=== PATIENT | male | born 1995 | race Caucasian/White ===

== ENCOUNTER 2024-01-08 19:53 | Emergency (ER) | payer OTHER, SELFPAY ==
--- NOTE | ~2024-01-08 | CT_ITS ---
EXAMINATION: CT ABDOMEN AND PELVIS WITH CONTRAST CLINICAL INFORMATION: Abdominal pain. COMPARISON: None available. TECHNIQUE: Multidetector volumetric images were obtained from the superior aspect of the liver through the pubic symphysis following administration 85 mL of Omnipaque 350 intravenous contrast. Sagittal and coronal reformatted images were obtained on the technologist's workstation. Oral contrast: No This CT examination was performed using dose optimization techniques as appropriate, variously including the following: *Automated exposure control *Adjustment of mA and/or kV according to patient size (this includes techniques or standardized protocols for targeted exams where dose is matched to indication/reason for exam; i.e. extremities or head) *Use of iterative reconstruction technique DLP: 722 mGy-cm FINDINGS: LUNG BASES: There is scarring or minimal subsegmental atelectasis at the lung bases. LIVER, GALLBLADDER, AND BILIARY TREE: The liver is normal in size, shape, and attenuation. No focal hepatic lesion or biliary ductal dilatation is present. The gallbladder is unremarkable with no evidence of radiopaque gallstones, gallbladder wall thickening, or obvious pericholecystic inflammatory changes. PANCREAS: Unremarkable. SPLEEN: Unremarkable. ADRENAL GLANDS: Unremarkable. KIDNEYS AND URETERS: The kidneys are normal in size, shape, and attenuation. Scattered left renal calculi measuring up to 5 mm lower pole left kidney. There is mild left hydronephrosis and hydroureter extending into the pelvis to the level of a 2 mm distal left ureteric calculus. BLADDER: Unremarkable. GASTROINTESTINAL TRACT: The small and large bowel are unremarkable. The appendix is unremarkable. ABDOMINAL WALL: There is a small umbilical hernia containing fat. LYMPH NODES: Normal. VASCULAR: Unremarkable. PELVIC VISCERA: Unremarkable. OSSEOUS STRUCTURES: Unremarkable. CT/CT abdomen pelvis w IV con IMPRESSION: 1. Mild left hydronephrosis and hydroureter extending into the pelvis to the level of a 2 mm distal left ureteric calculus. 2. Scattered left renal calculi measuring up to 5 mm lower pole left kidney. Fleischner guidelines were followed.
--- NOTE | 2024-01-08 20:25 | ED.ABDPAIN ---
HPI - Abdominal Pain General Chief Complaint: Abdominal Pain Stated Complaint: extremes stomach pain Time Seen by Provider: 01/08/24 23:40 Source: patient Mode of arrival: ambulatory History of Present Illness HPI narrative: 28-year-old male reports that throughout the day he has had some difficulty with urination and then reports that approximately 6 to 7p while having bowel movement that he experienced significant abdominal discomfort denies any fever or chills and for some nausea. Related Data Previous Rx's Medication Instructions Recorded ketorolac 10 mg tablet 10 mg PO Q6H PRN pain 5 days #20 01/09/24 tabs prednisone 20 mg tablet 20 mg PO DAILY #4 tabs 01/09/24 tamsulosin 0.4 mg capsule (Flomax) 0.4 mg PO BEDTIME #4 caps 01/09/24 Allergies Allergy/AdvReac Type Severity Reaction Status Date / Time No Known Allergies Allergy Verified 01/08/24 20:26 Review of Systems Review of Systems Pertinent positives and negatives as stated in HPI PMFSH Past Medical History Source: nursing notes reviewed Social History Social History Advance Directives: No Advance Directives Information Provided: No Physical Exam ED Vital Signs: Vital Signs - 24 hr 01/08/24 20:27 01/08/24 22:59 01/08/24 23:35 Temperature 97.6 F 97.8 F 98.3 F Pulse Rate 96 103 H 92 Respiratory Rate 19 18 17 Blood Pressure 152/88 H 122/72 111/54 L Pulse Oximetry 98 98 96 Oxygen Delivery Method Room Air Room Air Room Air BMI result Body Mass Index 35.7 VITAL SIGNS: Reviewed. GENERAL: Well developed, well nourished, in no acute distress. HEAD: Normocephalic/atraumatic EYES: PERRLA, EOMI EARS: Ext canals without abnormality NOSE: Nares patent bilateral OROPHARYNX: no oral lesions noted, posterior pharynx clear NECK: Supple, no adenopathy LUNGS: Normal breath sounds. No adventitious sounds or accessory muscle use. SpO2<98> CARDIOVASCULAR: Regular rate and rhythm without noted murmurs ABDOMEN: Soft, non-tender, non-distended with bowel sounds. MUSCULOSKELETAL: No tenderness, deformities, or effusions noted on gross inspection. EXTREMITIES: No cyanosis, clubbing or edema. SKIN: Inspection of the skin reveals no rashes NEUROLOGIC: Alert and oriented x 4. Strength and sensation to light touch were grossly intact x 4. Course Course Course Narrative: This is an RME: Additional HPI, ROS, PE not included below will be deferred to primary provider. Patient is a 28-year-old male presents emergency department for evaluation of severe ABD pain, diffuse across lower ABD radiating to back, onset while having a BM, successful movement without hematochezia or melena. Has associated nausea but no vomiting. He does report that earlier today he was experiencing urinary urgency frequency and urgency throughout the day with penile pain without hematuria/dysuria. States that once the severe lower abdominal pain started he no longer felt penile pain. Denies any testicular pain swelling. Denies any recent trauma. Exam: No rigidity. No guarding. No abdominal tenderness upon palpation/rebound tenderness. No CVA tenderness. Plan: Labs, urinalysis Medical Decision Making Medical Decision Making [facility] Narrative: 28-year-old male with history and clinical presentation of a benign abdominal exam, DDX: Renal colic, appendicitis, constipation, UTI I reviewed all investigations and hematologic indices appear to be most consistent with a non infectious leukocytosis as patient is afebrile, abdominal exam is benign, urinalysis does not demonstrate any UTI and patient has no other constitutional symptoms to suggest pneumonia. Otherwise, hematologic indices negative for anemia or thrombocytopenia. Chemistry indices negative for TAM/electrolyte derangements. There is an isolated bump in total bilirubin of 1.3. May be attributable to patient's feelings of nausea and pain. Urinalysis demonstrates hematuria which I suspect is most consistent with likely renal colic. I suspect patient has passed a kidney stone. CT scan significant for slight left hydro nephrosis and evidence of 2 mm stone distal. Patient is pain-free and will be discharged on a course of medications and given follow-up for Urology. Differential Diagnosis Differential Diagnoses: The differential diagnosis associated with the presentation includes Please see the discussion above Admission/Observation Consideration of admission/observation: Escalation of care including admission/observation considered Please see the discussion above Lab Data [facility] Lab Attestation statement: I reviewed the patient's lab results. Please see the discussion above 01/08/24 21:52 01/08/24 21:51 Labs: Lab Results 01/08/24 01/08/24 Range/Units 21:51 21:52 WBC 18.5 H (4.8-10.8) X10*3/uL RBC 5.52 (4.60-5.80) X10*6/uL Hgb 16.0 (14.0-18.0) g/dl Hct 47.3 (42.0-52.0) % MCV 85.7 (80.0-98.0) fL MCH 29.0 (27.0-33.0) pg MCHC 33.8 (31.0-36.0) g/dl RDW 11.9 (11.0-16.0) % Plt Count 387 (160-400) X10*3/uL MPV 9.1 L (9.4-12.4) fL Immature Gran % (Auto) 0.4 (0.0-0.4) % Neut % (Auto) 87.5 H (45-73) % Lymph % (Auto) 7.8 L (20-40) % [place] % (Auto) 3.9 (2-11) % Eos % (Auto) 0.1 (0-4) % Baso % (Auto) 0.3 (0-2) % Lymph # (Auto) 1.5 (1.2-4.9) X10*3/uL [place] # (Auto) 0.7 (0.1-1.2) X10*3/uL Eos # (Auto) 0.0 (0.0-0.4) X10*3/uL Baso # (Auto) 0.1 (0.0-0.2) X10*3/uL Abs Immat Gran (auto) 0.08 H (0.00-0.03) X10*3/uL Absolute Neuts (auto) 16.2 H (2.0-8.3) x10*3/uL Absolute Nucleated RBC 0.000 (0.0-0.012) X10*3/uL Nucleated RBC % (auto) 0.0 (0.0-0.2) /100WBC Sodium 140 (135-145) mmol/L Potassium 3.5 (3.3-5.1) mmol/L Chloride 107 (96-108) mmol/L Carbon Dioxide 22 (22-29) mmol/L Anion Gap 15 (12-20) BUN 12 (9-16) mg/dL Creatinine 0.96 (0.5-1.4) mg/dL Estim Creat Clear Calc 134.3 Estimated GFR > 60 Random Glucose 123 H (60-115) mg/dL Calcium 9.9 (8.4-10.2) mg/dL Total Bilirubin 1.3 H (0.0-1.0) mg/dL AST 21 (5-37) U/L ALT 34 (0-40) U/L Alkaline Phosphatase 66 (39-117) U/L Total Protein 7.8 (6.5-8.0) g/dL Albumin 4.8 (3.5-5.0) g/dL Lipase 30 (8-78) U/L Urine Color Yellow Urine Appearance Clear Urine pH 5.0 (5.0-9.0) Ur Specific Bells >= 1.030 H (1.005-1.025) Urine Protein Trace (Neg-Trace) mg/dL Urine Glucose (UA) Negative (Negative) mg/dL Urine Ketones Trace (Negative) mg/dL Urine Blood Large (3+) H (Negative) Urine Nitrite Negative (Negative) Ur Leukocyte Esterase Negative (Negative) Urine RBC >20 H (0-2) /HPF Urine WBC 0-5 (0-5) /HPF Ur Squamous Epith Cells 0-2 (0-2) /HPF Urine Bacteria None Seen (None Seen) Hyaline Casts 0-2 (0-2) /LPF Radiology Impression Discussion of test interpretation with radiology: I have reviewed the radiologist's reading. Radiologist Impression: Please see the discussion above Medications Administered Discontinued Medications Generic Name Dose Route Start Last Admin Trade Name Freq PRN Reason Stop Dose Admin Iohexol 85 ml 01/09/24 00:10 01/09/24 00:10 Iohexol 350 Mg/Ml 100 Ml Infus..Btl IV 01/09/24 00:11 85 ml ONCE ONE Administration Discharge Plan Discharge Clinical Impression: Renal colic, Hydronephrosis, Ureterolithiasis Patient Disposition: Home, Self-Care Instructions: Renal Colic (ED), Low Oxalate Diet (ED), Hydronephrosis (ED), Ureteral Stones (ED) Additional Instructions: 1. Continue to drink plenty of water, you will be discharged with medications to help you pass this stone. 2. Please follow-up with the urologist by calling the office on Kristopher morning. Return to the ER for any worsening symptoms. Prescriptions: New tamsulosin [Flomax] 0.4 mg capsule 0.4 mg PO BEDTIME Qty: 4 0RF prednisone 20 mg tablet 20 mg PO DAILY Qty: 4 0RF ketorolac 10 mg tablet 10 mg PO Q6H PRN (Reason: pain) 5 Days Qty: 20 0RF Rx Instructions: Patient received Toradol in the emergency room. Referrals: Alexis Coulter MD [Physician] -
[2024-01-08 20:27] VITALS: BP 152/88; PULSE 96; RESP 19; TEMP 36.4; O2SAT 98; BMI 35.7
--- NOTE | 2024-01-08 21:55 | MHC.EDTECH ---
PATIENT BLOOD DRAWN AND URINE SAMPLE COLLECTED AND SENT TO LAB .
[2024-01-08 21:56] LABS: MANUAL DIFF FLAG NO
[2024-01-08 21:58] LABS: Basophils Absolute Auto 0.1 X10*3/uL (0.0-0.2); Basophils Percent Auto 0.3 % (0-2); Eosinophils Percent Auto 0.1 % (0-4); Hematocrit 47.3 % (42.0-52.0); Imm Gran Abs Auto 0.08 X10*3/uL (0.00-0.03); Imm Gran Pct Auto 0.4 % (0.0-0.4); Lymphocytes Absolute Auto 1.5 X10*3/uL (1.2-4.9); Lymphocytes Percent Auto 7.8 % (20-40); Mean Corpuscular HGB Conc 33.8 g/dl (31.0-36.0); Mean Corpuscular Volume 85.7 fL (80.0-98.0); Mean Platelet Volume 9.1 fL (9.4-12.4); Monocytes Absolute Auto 0.7 X10*3/uL (0.1-1.2); Monocytes Percent Auto 3.9 % (2-11); Neutrophils Absolute Auto 16.2 x10*3/uL (2.0-8.3); Neutrophils Percent Auto 87.5 % (45-73); Platelet Count 387 X10*3/uL (160-400); Red Blood Count 5.52 X10*6/uL (4.60-5.80); Red Cell Distribution Width 11.9 % (11.0-16.0); White Blood Count 18.5 X10*3/uL (4.8-10.8)
[2024-01-08 22:10] LABS: Appearance Urine Clear; Color Urine Yellow; Glucose Urine UA Negative (Negative); Leukocyte Esterase Urine Negative (Negative); Nitrite Urine Negative (Negative); Specific Gravity - Urine >= 1.030 (1.005-1.025); UMIC TRIGGER UACC YES; Urine Blood Large (3+) (Negative); Urine Ketones Trace mg/dL (Negative); Urine Protein Trace mg/dL (Neg-Trace)
[2024-01-08 22:16] LABS: Alanine Aminotransferase 34 U/L (0-40); Albumin Level 4.8 g/dL (3.5-5.0); Alkaline Phosphatase 66 U/L (39-117); Anion Gap 15 (12-20); Aspartate Amino Transferase 21 U/L (5-37); Bilirubin Total 1.3 mg/dL (0.0-1.0); Blood Urea Nitrogen 12 mg/dL (9-16); Calcium 9.9 mg/dL (8.4-10.2); Carbon Dioxide 22 mmol/L (22-29); Chloride 107 mmol/L (96-108); Creatinine Clr Calc Pharmacy 134.3; Estimated Glomerular Filt Rate > 60; Glucose Random 123 mg/dL (60-115); Lipase 30 U/L (8-78); Potassium 3.5 mmol/L (3.3-5.1); Sodium 140 mmol/L (135-145); Total Protein 7.8 g/dL (6.5-8.0)
[2024-01-08 22:18] LABS: Bacteria Urine None Seen (None Seen); Hyaline Casts Urine 0-2 /LPF (0-2); RBC Urine >20 /HPF (0-2); Squamous Epithelial Cell Urine 0-2 /HPF (0-2); WBC Urine 0-5 /HPF (0-5)
[2024-01-08 22:59] VITALS: BP 122/72; PULSE 103; RESP 18; TEMP 36.6; O2SAT 98
--- NOTE | 2024-01-08 23:13 | PC.NURSE ---
Reports abdominal pain that is improving but radiates to back. IV placed #20 L-AC
[2024-01-08 23:35] VITALS: BP 111/54; PULSE 92; RESP 17; TEMP 36.8; O2SAT 96
[2024-01-09] MEDS: iohexoL 350 MG/ML 100 ML INFUS..BTL 85 ML IV (00:10)
[2024-01-09 02:00] VITALS: BP 129/77; PULSE 115; RESP 18; TEMP 36.3; O2SAT 97
[2024-01-09] MEDS: Tamsulosin HCL 0.4 MG CAPSULE PO (02:35)
== END 2024-01-09 02:30 | disposition home or self-care (01) ==
PROVIDERS: Nurse Practitioner Family; Emergency Provider Student in an Organized Health Care Education/Training Program
DX: N13.2 Hydronephrosis with renal and ureteral calculous obstruction (principal)
CPT/HCPCS: 36415; 74177; 80053; 81001; 81003; 83690; 85025; 99284; Q9967

== ENCOUNTER 2024-02-25 12:39 | Outpatient (AMB) | payer OTHER, SELFPAY ==
--- NOTE | 2024-02-25 12:51 | MHC.OFFVIS ---
Intake Intake Visit Reasons: ureteral stone/nephrolithiasis Intake Note: NEW Patient presents today to established treatment for urethral stone Meds- Allergies to Antibiotic- No Known Allergies Blood Thinner- None Patient Symptoms: Patient was in the emergency department about a month ago due to chronic pain. He was told he had a kidney stone. Issue was resolved with medications prescribed in the ER. Patient stated he does not have any pain, or visible blood in the urine. Web Press Roll Tender Required: No Accompanied by: Self / Same As Patient Allergies No Known Allergies Allergy (Verified 02/25/24 13:25) Medication List - Last Reconciled 02/25/24 by JURGEN Rogers- HPI HPI Comments History of Present Illness Details Eugene is a very pleasant 28-year-old male patient. He presents to the office today as a new patient for nephrolithiasis. In discussion with the patient today reports to be doing and feeling well. He reports having seeked emergency room care services approximately 6 weeks ago for left-sided flank pain he had been experiencing at which time a CT of the abdomen was ordered for further assessment evaluation. These results were reviewed with the patient today. Scattered left renal calculi measuring up to 5 mm in the lower pole of the left kidney. There is mild left hydronephrosis and hydroureter extending into the pelvis to the level of a 2 mm distal left uterine calculus. The bladder is unremarkable. He reports having completed Flomax and prednisone as prescribed by ER physician. He reports pain subsided approximately 3 days after his ER visit. He currently denies any bothersome urinary issues or concerns. Denies any previous history of nephrolithiasis and or surgical intervention for nephrolithiasis. In office urinalysis results reviewed with the patient today 3+ microscopic hematuria. Patient denies any previous smoking history and or known workplace chemical exposure. Discussed likelihood of microscopic hematuria in the setting of nephrolithiasis. He otherwise offers no other issues or concerns at this time. [facility] Medical History No pertinent past medical history Surgical History No pertinent past surgical history Social History Alcohol intake: never Patient Tobacco Use Status: Never used Tobacco Review of Systems Const All systems reviewed & are unremarkable except as noted in HPI and below Physical Exam Const General: cooperative, healthy appearing, comfortable, no acute distress, well developed, alert and awake Orientation/consciousness: patient oriented x3 Limitations: no limitations HEENT Head: Yes normal to inspection, Yes normocephalic and Yes atraumatic Ears: hearing grossly normal bilaterally Eyes General: appearance normal, both eyes and all related structures Neck Neck: Yes normal visual inspection and Yes trachea midline Chest Chest palpation & inspection: normal inspection of the chest Resp Effort & Inspection: normal respiratory effort and able to speak in complete sentences Cardio Rate: regular rate GI Inspection: Yes normal to inspection General: Yes no CVA tenderness Back/Spine/Pelvis Back: no CVA tenderness Skin General skin exam: no rashes or lesions noted Neuro General: patient oriented x3 Extrem General: Yes normal to inspection Psych Appearance: grossly normal and well kempt Mental Status: mental status grossly normal Speech and movement: Normal speech and movement present and Clear speech present Affect: normal affect Attitude: cooperative Thought process: Normal thought process present Thought content: Normal thought content present Insight: Good insight present (Psych) Judgement: Good judgement present (Psych) Results AMB Urinalysis, Automated UA Leukoctes 0 James/uL Last Edit by Yessica Villalobos [facility] on 02/25/24 13:05 UA Nitrite Negative Last Edit by Yessica Villalobos [facility] on 02/25/24 13:05 UA Urobilinogen 0.2 mg/dL Last Edit by Yessica Villalobos [facility] on 02/25/24 13:05 UA Protein 0 mg/dL Last Edit by Yessica Villalobos [facility] on 02/25/24 13:05 UA pH 6.0 Last Edit by Yessica Villalobos [facility] on 02/25/24 13:05 UA Blood 200 Ming/uL Last Edit by Yessica Villalobos [facility] on 02/25/24 13:05 UA Specific [place] 1.020 Last Edit by Yessica Villalobos [facility] on 02/25/24 13:05 UA Ketone Negative Last Edit by Yessica Villalobos [facility] on 02/25/24 13:05 UA Bilirubin 0 mg/dL Last Edit by eYssica Villalobos [facility] on 02/25/24 13:05 UA Glucose 0 mg/dL Last Edit by Yessica Villalobos [facility] on 02/25/24 13:05 Results Reviewed Results Reviewed: Laboratory Last Values Urine pH (Auto) 6.0 02/25/24 12:55 Specific [place] (Auto) 1.020 02/25/24 12:55 Urine Protein (Auto) 0 mg/dL 02/25/24 12:55 Glucose (UA)(Auto) 0 mg/dL 02/25/24 12:55 Urine Ketones (Auto) Negative 02/25/24 12:55 Urine Blood (Auto) 200 Ming/uL 02/25/24 12:55 Urine Nitrite (Auto) Negative 02/25/24 12:55 Urine Bilirubin (Auto) 0 mg/dL 02/25/24 12:55 Urine Urobilinogen (Auto) 0.2 mg/dL 02/25/24 12:55 Leukocyte Esterase (Auto) 0 James/uL 02/25/24 12:55 Date of Service: 01/08/24 EXAMINATION: CT ABDOMEN AND PELVIS WITH CONTRAST FINDINGS: LUNG BASES: There is scarring or minimal subsegmental atelectasis at the lung bases. LIVER, GALLBLADDER, AND BILIARY TREE: The liver is normal in size, shape, and attenuation. No focal hepatic lesion or biliary ductal dilatation is present. The gallbladder is unremarkable with no evidence of radiopaque gallstones, gallbladder wall thickening, or obvious pericholecystic inflammatory changes. PANCREAS: Unremarkable. SPLEEN: Unremarkable. ADRENAL GLANDS: Unremarkable. KIDNEYS AND URETERS: The kidneys are normal in size, shape, and attenuation. Scattered left renal calculi measuring up to 5 mm lower pole left kidney. There is mild left hydronephrosis and hydroureter extending into the pelvis to the level of a 2 mm distal left ureteric calculus. BLADDER: Unremarkable. GASTROINTESTINAL TRACT: The small and large bowel are unremarkable. The appendix is unremarkable. ABDOMINAL WALL: There is a small umbilical hernia containing fat. LYMPH NODES: Normal. VASCULAR: Unremarkable. PELVIC VISCERA: Unremarkable. OSSEOUS STRUCTURES: Unremarkable. IMPRESSION: 1. Mild left hydronephrosis and hydroureter extending into the pelvis to the level of a 2 mm distal left ureteric calculus. 2. Scattered left renal calculi measuring up to 5 mm lower pole left kidney. Assessment & Plan Assessment & Plan (1) Nephrolithiasis: Code(s): N20.0 - Calculus of kidney Plan In office urinalysis results reviewed with the patient today; as noted above. Recent CT results reviewed with the patient today; as noted above. Patient denies any bothersome urinary issues or concerns. Discussed at length potential causes of nephrolithiasis. Discussed obtaining renal ultrasound to ensure resolution of hydronephrosis. Discussed, educated, and stressed the importance of drinking plenty of water daily. Discussed further metabolic workup with 24 hour urine collection and labs. Discussed adding 1 oz of lemon juice to water daily. He is happy with his current voiding parameters. Follow-up in 1-2 months with imaging to be completed prior; or sooner with any issues, concerns, and or questions. Orders: Orders AMB Urinalysis Automated Today R33.9 - Retention of urine, unspecified US renal BI Today N20.0 - Calculus of kidney Patient Instructions: The patient had an opportunity to ask questions regarding the treatment plan. All questions were answered. Physical exam, labs, and imaging were discussed and reviewed in detail. As well as risks, benefits, and discussion of treatment choices. No major barriers to understanding were identified. The patient expressed understanding and agreement with the above treatment plan. The patient was made aware they should contact our office by phone for worsening of their current condition, the appearance of new symptoms, or with any questions or concerns. Compliance is encouraged with any medications and follow up testing that is ordered. It is a privilege to be allowed the opportunity to participate in? your urological care.? Again, if you have any questions or concerns If you have any questions or concerns please do not hesitate to contact me. The office is [phone]. This note is constructed using voice recognition software. While every effort has been made to ensure accuracy lecturer in computer science errors may have been included. Yours sincerely, RITCHIE Rogers Coding Level of Care Code New Pt Level 4 (14603) Diagnoses Nephrolithiasis N20.0
== END 2024-02-25 13:35 | disposition home or self-care (01) ==
PROVIDERS: Visit Provider Nurse Practitioner Family
DX: N20.0 Calculus of kidney (principal); R33.9 Retention of urine, unspecified
CPT/HCPCS: 99204

== ENCOUNTER → 2024-02-25 12:39 | Outpatient (BNVA) | payer OTHER, SELFPAY | PROVIDERS: Visit Provider Nurse Practitioner Family | DX: N20.0 Calculus of kidney (principal); R33.9 Retention of urine, unspecified | CPT/HCPCS: 81003 ==

== ENCOUNTER 2024-04-18 15:14 | Outpatient (REF) | payer OTHER, SELFPAY ==
--- NOTE | ~2024-04-18 | US_ITS ---
EXAMINATION: US RETROPERITONEAL LIMITED (RENAL ONLY) CLINICAL INFORMATION: Calculus of kidney. COMPARISON: CT abdomen and pelvis 01/08/2024. TECHNIQUE: Real-time imaging of the kidneys. Limited visualization due to bowel gas. FINDINGS: RIGHT KIDNEY: 12.1 x 4.4 x 6.2 cm (SAG x AP x TRV). No hydronephrosis. No renal calculi. Renal cortical thickness is normal. Limited visualization. LEFT KIDNEY: 12.2 x 4.9 x 6.1 cm (SAG x AP x TRV). No hydronephrosis. No renal calculi. Renal cortical thickness is normal. Limited visualization. ADDITIONAL FINDINGS: Incidental note on limited views of the right hepatic lobe of increased hepatic parenchymal heterogeneity and echogenicity which could be associated with hepatocellular disease/hepatic steatosis and substantially limits visualization. Correlation with liver function tests and clinical exam recommended to determine further management. US/US renal BI IMPRESSION: 1. No hydronephrosis. No renal calculi. Limited visualization. 2. Incidental note on limited views of the right hepatic lobe of increased hepatic parenchymal heterogeneity and echogenicity which could be associated with hepatocellular disease/hepatic steatosis and substantially limits visualization. Correlation with liver function tests and clinical exam recommended to determine further management.
== END 2024-04-18 15:15 | disposition home or self-care (01) ==
LOC: HO.HMGCX 15:14
PROVIDERS: Visit Provider Nurse Practitioner Family
DX: N20.0 Calculus of kidney (principal)
CPT/HCPCS: 76775

== ENCOUNTER 2024-05-03 14:39 | Outpatient (AMB) | payer OTHER, SELFPAY ==
--- NOTE | 2024-05-03 14:48 | A.OFFVIS_ITS ---
Intake Visit Reasons: 2 month follow up/ US(set) Intake Note: Patient presents today for follow up on: urethral stone and Ultrasound Results Imagin04/18/24 Urology Meds: none Allergies to Antibiotic: No Known Allergies Blood Thinner: None Sports Betting Manager Required: No Accompanied by: Self / Same As Patient Allergies No Known Allergies Allergy (Verified 05/03/24 20:42) Medication List - Last Reconciled 05/03/24 by RITCHIE Rogers No Known Home Meds HPI Comments Details: Eugene is a very pleasant 28-year-old male patient. He presents to the office today for a follow up of his nephrolithiasis. Recent renal imaging results reviewed with the patient today. Bilateral kidneys with no hydronephrosis or renal calculi. Incidental note on limited views of the right hepatic lobe of increased hepatic parenchymal heterogeneity and echogenicity. Recommendation for correlation with liver function tests is recommended per radiology report. It appears stones noted on previous CT have passed and mild hydronephrosis has since resolved. He currently denies any bothersome urinary issues or concerns. In office urinalysis results reviewed with the patient today. PH 5.5. Discussed and stressed the importance of drinking plenty of water daily given a history of nephrolithiasis. He denies urinary urgency, urinary frequency, incontinence, nocturia, hematuria, dysuria, foul smelling urine, changes to urinary stream, flank pain, fever, and or chills. He is happy with his current voiding parameters. He otherwise offers no other issues or concerns at this time. [facility] Medical History No pertinent past medical history Surgical History No pertinent past surgical history Social History Alcohol intake: never Patient Tobacco Use Status: Never used Tobacco Review of Systems Const All systems reviewed & are unremarkable except as noted in HPI and below Physical Exam Const General: cooperative, healthy appearing, comfortable, no acute distress, well developed, alert and awake Orientation/consciousness: patient oriented x3 Limitations: no limitations HEENT Head: Yes normal to inspection, Yes normocephalic and Yes atraumatic Ears: hearing grossly normal bilaterally Eyes General: appearance normal, both eyes and all related structures Neck Neck: Yes normal visual inspection and Yes trachea midline Chest Chest palpation & inspection: normal inspection of the chest Resp Effort & Inspection: normal respiratory effort and able to speak in complete sentences Cardio Rate: regular rate GI Inspection: Yes normal to inspection General: Yes no CVA tenderness Back/Spine/Pelvis Back: no CVA tenderness Skin General skin exam: no rashes or lesions noted Neuro General: patient oriented x3 Extrem General: Yes normal to inspection Psych Appearance: grossly normal and well kempt Mental Status: mental status grossly normal Speech and movement: Normal speech and movement present and Clear speech present Affect: normal affect Attitude: cooperative Thought process: Normal thought process present Thought content: Normal thought content present Insight: Good insight present (Psych) Judgement: Good judgement present (Psych) Results AMB Urinalysis, Automated UA Leukoctes 0 James/uL Last Edit by Soft Tissue Regeneration Yaquelin on 05/03/24 15:03 UA Nitrite Negative Last Edit by Samia Jamison on 05/04/24 08:43 UA Nitrite previously reported as Positive Samia Jamison 05/04/24 08:43 UA Urobilinogen 0.2 mg/dL Last Edit by Samia Jamison on 05/03/24 15:03 UA Protein 15 mg/dL Last Edit by Samia Jamison on 05/03/24 15:03 UA pH 5.5 Last Edit by Reelhousedebo Jamison on 05/03/24 15:03 UA Blood 0 Ming/uL Last Edit by Reelhousedebo Jamison on 05/03/24 15:03 UA Specific [place] 1.030 Last Edit by TitusSava [employer] Jamison on 05/03/24 15:03 UA Ketone Negative Last Edit by [employer] Jamison on 05/03/24 15:03 UA Bilirubin 0 mg/dL Last Edit by T[employer]Sava [employer] Jamison on 05/03/24 15:03 UA Glucose 0 mg/dL Last Edit by Samia Jamison on 05/03/24 15:03 Results Reviewed Results Reviewed: Laboratory Last Values Urine pH (Auto) 5.5 05/03/24 14:53 Specific [place] (Auto) 1.030 05/03/24 14:53 Urine Protein (Auto) 15 mg/dL 05/03/24 14:53 Glucose (UA)(Auto) 0 mg/dL 05/03/24 14:53 Urine Ketones (Auto) Negative 05/03/24 14:53 Urine Blood (Auto) 0 Ming/uL 05/03/24 14:53 Urine Nitrite (Auto) Negative 05/03/24 14:53 Urine Bilirubin (Auto) 0 mg/dL 05/03/24 14:53 Urine Urobilinogen (Auto) 0.2 mg/dL 05/03/24 14:53 Leukocyte Esterase (Auto) 0 James/uL 05/03/24 14:53 Date of Service: 04/18/24 EXAMINATION: US RETROPERITONEAL LIMITED (RENAL ONLY) FINDINGS: RIGHT KIDNEY: 12.1 x 4.4 x 6.2 cm (SAG x AP x TRV). No hydronephrosis. No renal calculi. Renal cortical thickness is normal. Limited visualization. LEFT KIDNEY: 12.2 x 4.9 x 6.1 cm (SAG x AP x TRV). No hydronephrosis. No renal calculi. Renal cortical thickness is normal. Limited visualization. ADDITIONAL FINDINGS: Incidental note on limited views of the right hepatic lobe of increased hepatic parenchymal heterogeneity and echogenicity which could be associated with hepatocellular disease/hepatic steatosis and substantially limits visualization. Correlation with liver function tests and clinical exam recommended to determine further management. IMPRESSION: 1. No hydronephrosis. No renal calculi. Limited visualization. 2. Incidental note on limited views of the right hepatic lobe of increased hepatic parenchymal heterogeneity and echogenicity which could be associated with hepatocellular disease/hepatic steatosis and substantially limits visualization. Correlation with liver function tests and clinical exam recommended to determine further management. Assessment & Plan Assessment & Plan (1) Nephrolithiasis: Code(s): N20.0 - Calculus of kidney Category: Medical Plan In office urinalysis results reviewed with the patient today; as noted above. Recent renal ultrasound results reviewed with the patient today; as noted above. Discussed importance of following up regarding liver enzymes; he is aware and will follow-up with his PCP as he has an appointment. Patient denies any bothersome urinary issues or concerns. Discussed at length potential causes of nephrolithiasis. Discussed, educated, and stressed the importance of drinking plenty of water daily. Discussed further metabolic workup with 24 hour urine collection and labs. Discussed adding 1 oz of lemon juice to water daily. He is happy with his current voiding parameters. Follow-up in one year with imaging to be completed prior; or sooner with any issues, concerns, and or questions. Orders: Orders US renal BI 1 Year N20.0 - Calculus of kidney AMB Urinalysis Automated 05/03/24 Z13.9 - Encounter for screening, unspecified Patient Instructions: The patient had an opportunity to ask questions regarding the treatment plan. All questions were answered. Physical exam, labs, and imaging were discussed and reviewed in detail. As well as risks, benefits, and discussion of treatment choices. No major barriers to understanding were identified. The patient expressed understanding and agreement with the above treatment plan. The patient was made aware they should contact our office by phone for worsening of their current condition, the appearance of new symptoms, or with any questions or concerns. Compliance is encouraged with any medications and follow up testing that is ordered. It is a privilege to be allowed the opportunity to participate in? your urological care.? Again, if you have any questions or concerns If you have any questions or concerns please do not hesitate to contact me. The office is [phone]. This note is constructed using voice recognition software. While every effort has been made to ensure accuracy financial assistance advisor errors may have been included. Yours sincerely, RITCHIE Rogers Coding Level of Care Code Est Pt Level 3 (65645) Diagnoses Nephrolithiasis N20.0
== END 2024-05-03 15:26 | disposition home or self-care (01) ==
PROVIDERS: Visit Provider Nurse Practitioner Family
DX: N20.0 Calculus of kidney (principal); Z13.9 Encounter for screening, unspecified
CPT/HCPCS: 99213

== ENCOUNTER → 2024-05-03 14:39 | Outpatient (BNVA) | payer OTHER, SELFPAY | PROVIDERS: Visit Provider Nurse Practitioner Family | DX: Z87.442 Personal history of urinary calculi (principal) | CPT/HCPCS: 81003 ==

== ENCOUNTER 2024-10-19 12:17 | Outpatient (AMB) | payer OTHER, SELFPAY ==
[2024-10-19 12:27] VITALS: BP 112/76; PULSE 96; O2SAT 99; BMI 35.7
--- NOTE | 2024-10-19 12:27 | MHC.PC.OV ---
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 Allergies No Known Allergies Allergy (Verified 10/19/24 12:41) Medication List - Last Reconciled 10/19/24 by RITCHIE Albarran No Known Home Meds Tobacco use date assessed: 10/19/24 Dental Screening Dental Screen Date: 10/19/24 Did you have a dental visit in the last 12 months?: No Did you have a dental problem in the last 6 months where you did not have access to dental care?: No Was dental information given to patient?: Yes HPI HPI Comments History of Present Illness Details Pt is here for a PE. Pt does report intermittent SILVA, pointing to right parietal region. Pt has had these episodes for approx 2 years. They last x 1 minute, with some blurred vision and dizziness. PFS Medical History No pertinent past medical history Surgical History No pertinent past surgical history Family History Father Throat cancer Substance use disorder Mother Hypertension Stroke Brother Substance use disorder Social History Housing: House Alcohol intake: never Patient Tobacco Use Status: Never used Tobacco e-Cigarette/Vaping Use: Never Used service: No Current occupational status: employed Cognitive needs: No Hearing needs: No Vision needs: No Questionnaire PHQ-9 Over the last 2 weeks, how often have you been bothered by any of the following problems? 1. Little interest or pleasure in doing things: several days 2. Feeling down, depressed, or hopeless: several days 3. Trouble falling or staying asleep, or sleeping too much: several days 4. Feeling tired or having little energy: several days 5. Poor appetite or overeating: several days 6. Feeling bad about yourself - or that you are a failure or have let yourself or your family down: several days 7. Trouble concentrating on things, such as reading the newspaper or watching television: not at all 8. Moving or speaking so slowly that other people could have noticed. Or the opposite - being so fidgety or restless that you have been moving around a lot more than usual: not at all 9. Thoughts that you would be better off or of hurting yourself in some way: not at all Total score: 6 Depression Screening Interpretation: Negative Depression Screening Done: Yes 02210 - PHQ-9 Billing: Yes Source: Developed by Drs. Deven Watkins, Diane Garcia, Matthew Figueroa and colleagues, with an educational omar from [employer]. Thrive Questionnaire Date Thrive assessed: 10/18/24 I am a: Patient What is your living situation today?: I have a steady place to live Within the past 12 months, did the food you bought not last and you didn't have the money to get more?: Never true Within the past 12 months, did you worry whether your food would run out before you got money to buy more?: Sometimes True Do you have trouble paying for medicines?: No Do you have trouble getting transportation to medical appointments?: No Do you have trouble paying your heating and electricity bill?: No Do you have trouble taking care of your child, family member or friend?: I choose not to answer this question Do you have trouble with day-to-day activities such as bathing, preparing meals, shopping, managing finances, etc.?: No Are you currently unemployed and looking for a job?: No Are you interested in more education?: Yes Please select the resources that you would like help with: None Currently or been in a relationship where the following occur: No concerns reported THRIVE Score: 1 AUDIT C Alcohol Use Questionnaire (AUDIT-C) 1. How often do you have a drink containing alcohol?: Monthly or less 2. How many drinks containing alcohol do you have on a typical day when you are drinking?: 1 or 2 3. How often do you have six or more drinks on one occasion?: Never Total Score: 1 JONH-7 AMB Questionnaire JONH-7 Date JONH - 7 assessed: 10/19/24 Feeling nervous, anxious, or on edge: 1 = Several days Not being able to stop or control worryin = Several days Worrying too much about different things: 1 = Several days Trouble relaxin = Several days Being so restless that it is hard to sit still: 0 = Not at all Becoming easily annoyed or irritable: 1 = Several days Feeling afraid as if something awful might happen: 1 = Several days Total JONH-7 score (0-4 normal; 5-9 mild; 10-14 moderate; 15-21 severe): 6 Source: Developed by Drs. Deven Watkins, Diane Garcia, Matthew Figueroa and colleagues, with an educational omar from [employer]. JONH-7 Assessment Billing JONH-7 Assessment Tool: JONH-7 Assessment 73423 Review of Systems Const Denies chills and Denies fever(s) Eyes Denies blurry vision ENT Denies vertigo, Denies dizziness and Denies sore throat Card Denies chest pain at rest, Denies chest pain with activity, Denies diaphoresis, Denies dyspnea and Denies dyspnea on exertion Resp Denies cough, Denies dyspnea, Denies dyspnea on exertion and Denies wheezing GI Denies abdominal pain, Denies melena, Denies hematochezia, Denies constipation, Denies diarrhea and Denies loose stools Denies hematuria Musc Denies numbness and Denies tingling Skin/Breast Denies lesions Neuro Denies vertigo, Denies dizziness, Denies numbness and Denies tingling Psych Denies anxiety, Denies depression, Denies homicidal ideation, Denies suicidal ideation and Denies other (substance abuse) Aller/Immun Denies wheezing Physical exam (Primary Care) Vital Signs: Last Vital Signs Pulse 96 10/19/24 12:27 BP 112/76 10/19/24 12:27 Pulse Ox 99 10/19/24 12:27 Oxygen Delivery Method Room Air 10/19/24 12:27 BMI result Body Mass Index 35.7 Tobacco/Smoking Status: Tobacco use Status Tobacco use date assessed 10/19/24 10/19/24 12:46 Patient Tobacco Use Status Never used Tobacco 10/19/24 12:27 e-Cigarette/Vaping Use Never Used 10/19/24 12:46 PHQ-9: PHQ-9 Score PHQ-9: Total score 6 11/20/24 12:46 Depression Screening Interpretation: Negative Thrive Assessment: Date of Thrive Assessment Date Thrive assessed 10/18/24 10/19/24 12:27 Currently or been in a relationship where the following occur: No concerns reported Const General: cooperative Nutritional Appearance: well nourished and obese Orientation/consciousness: patient oriented x3 HENMT Head: Yes normal to inspection, Yes normocephalic and Yes atraumatic Ears: TM normal on the right and TM normal on the left Eyes General: appearance normal, both eyes and all related structures Alignment and Position: alignment normal and position normal Neck Neck: Yes normal visual inspection, Yes no lymphadenopathy and Yes supple Resp Effort & Inspection: normal respiratory effort Auscultation: clear to auscultation bilaterally Cardio Rate: regular rate Rhythm: regular rhythm Heart sounds: S1 normal heart sound present, S2 normal heart sound present and no murmurs GI Palpation (GI): Soft to palpation and nontender Auscultation: normal bowel sounds Male General Exam: Yes normal external exam Penis: normal penis Scrotum: scrotum normal, testes descended bilaterally and no inguinal hernias Testes: no testicular mass Skin Rashes: no rashes Neuro General: patient oriented x3, moves all extremities, no focal motor deficits and deep tendon reflexes 2+ bilaterally Cranial nerves: Yes CN's II-XII intact bilaterally Motor exam (neuro): 5/5 motor strength present throughout Romberg Test: Negative Extrem Right lower extremity: no edema Left lower extremity: no edema Psych Affect: normal affect Attitude: cooperative Thought process: Normal thought process present Coding Level of Care Code New Pt Prev Care 18-39yr([id number] Diagnoses Physical exam Z00.00 New onset headache R51.9 Additional Codes JONH-7 Assessment Billing - JONH-7 Assessment Tool: JONH-7 Assessment 70997 ([id number]) PHQ-9 - 53238 - PHQ-9 Billing: Yes ([id number]) Assessment & Plan Assessment & Plan (1) Physical exam: Code(s): Z00.00 - Encounter for general adult medical examination without abnormal findings Category: Medical Plan: labs ordered (2) New onset headache: Code(s): R51.9 - Headache, unspecified Category: Medical Plan labs ordered, ? dehydration component, CT scan ordered Orders: Orders TSH reflex Free T4 Today Z00.00 - Encounter for general adult medical examination without abnormal findings Lipid Panel Today Z00.00 - Encounter for general adult medical examination without abnormal findings CT head/brain wo IV con Today R51.9 - Headache, unspecified Complete Blood Count Auto Diff Today Z00.00 - Encounter for general adult medical examination without abnormal findings Comprehensive Ruby. Panel Fast Today Z00.00 - Encounter for general adult medical examination without abnormal findings UA CC w/rflx Micro + Cult Today Z00.00 - Encounter for general adult medical examination without abnormal findings
== END 2024-10-19 14:09 | disposition home or self-care (01) ==
PROVIDERS: Visit Provider Nurse Practitioner Family
DX: Z00.00 Encounter for general adult medical examination without abnormal findings (principal); R51.9 Headache, unspecified

== ENCOUNTER → 2024-10-19 12:17 | Outpatient (BNVA) | payer OTHER, SELFPAY | PROVIDERS: Visit Provider Nurse Practitioner Family | DX: Z00.01 Encounter for general adult medical examination with abnormal findings (principal); R51.9 Headache, unspecified | CPT/HCPCS: 96127 ==

== ENCOUNTER 2024-12-01 16:26 | Outpatient (REF) | payer OTHER, SELFPAY ==
--- NOTE | ~2024-12-01 | CT_ITS ---
CLINICAL HISTORY: R51.9 - Headache, unspecified CT head without contrast Comparison: 02/09/2014 Findings: No new intra-axial mass, midline shift, hydrocephalus, or acute hemorrhage. No significant atrophy-like change or white matter disease. There is no sinus or mastoid fluid. The orbits are within normal limits. No skull fracture. IMPRESSION: 1. No acute intracranial findings This document has been electronically signed by: Jamil Garcia MD on 12/02/2024 17:20:45
== END 2024-12-01 16:27 | disposition home or self-care (01) ==
LOC: HO.CT 16:26
PROVIDERS: PCP Nurse Practitioner Family; Visit Provider Nurse Practitioner Family
DX: R51.9 Headache, unspecified (principal)
CPT/HCPCS: 70450

== ENCOUNTER → 2024-12-01 16:29 | Outpatient (BNV) | payer OTHER, SELFPAY | PROVIDERS: PCP Nurse Practitioner Family; Visit Provider Specialist | DX: R51.9 Headache, unspecified (principal) | CPT/HCPCS: 70450 ==

== ENCOUNTER 2025-02-08 07:14 | Outpatient (REF) | payer OTHER, SELFPAY ==
--- OUTSIDE RECORDS SUMMARY | 2025-02-08 07:16 | XMS_ITS | Clinical Summary ---
Author Organization [facility] Address [address] [place] [address] Phone Care Team Providers Care Language Arts Teacher Name Role Phone Enriqueta Pham MD Primary Care Prov ider Social History Tobacco Use Types Packs/Day Years Used Date Smoking Tobacco: Never Assessed Sex and Gender Information Value Date Recorded Sex Assigned at Not on file Legal Sex Male 12:17 PM EST Gender Identity Not on file Sexual Orientation Not on file Plan of Treatment Health Maintenance Due Date Last Done Comments Consider Men B Vaccine (1 of 2 - Bexsero 2-dose series) 2010 Hepatitis A Vaccines (2 of 2 - 2-dose series) 05/22/2014 11/21/2013, 11/21/2013 DTaP,Tdap,and Td Vaccines (14 - Td or Tdap) 11/21/2023 11/21/2013, 11/21/2013, 11/21/2013, Additional history exists Influenza Vaccines (#1) 2024 11/21/20 13, 11/21/2013, 11/16/2009 COVID-19 Vaccine ( season) 2024 Meningococcal Vaccine Completed 03/24/2012 , 03/24/2012, 01/21/2008, Additional history exists HIB Vaccines Aged Out 11/21/2013, 11/21/2013 No lo nger eligible based on patient's age to complete this topic Hepatitis B Vaccines Completed 11/21/2013, 11/21/2013, 07/08/2001, Additional history exists IPV Vaccines Completed 11/21/2013, 10/31, 01/27/2000, Additional history exists MMR Vaccines Completed 11/21/2013, 07/2001, 12/15/1995 Pneumococcal Vaccine Aged Out 11/21/2013, 11/21/2013, 11/21/2013 No longer eligible based on patient's age to complete this topic Varicella Vaccines Completed 11/21/2013, 0 01/21/2008, 07/08/2001 HPV Vaccines Aged Out No longer eligi ble based on patient's age to complete this topic Men B Vaccine Aged Out No longer elig ible based on patient's age to complete this topic Care Teams Language Arts Teacher Relationship Specialty Start Date End Date Enriqueta Pham MD [address] [place] [address] PCP - General 01/20/18
[2025-02-08 10:17] LABS: MANUAL DIFF FLAG NO
[2025-02-08 10:29] LABS: Basophils Percent Auto 0.4 % (0-2); Eosinophils Absolute Auto 0.1 X10*3/uL (0.0-0.4); Eosinophils Percent Auto 1.3 % (0-4); Hematocrit 46.9 % (42.0-52.0); Hemoglobin 15.7 g/dl (14.0-18.0); Imm Gran Abs Auto 0.03 X10*3/uL (0.00-0.03); Imm Gran Pct Auto 0.4 % (0.0-0.4); Lymphocytes Absolute Auto 2.5 X10*3/uL (1.2-4.9); Lymphocytes Percent Auto 33.1 % (20-40); Mean Corpuscular HGB Conc 33.5 g/dl (31.0-36.0); Mean Corpuscular Hemoglobin 29.3 pg (27.0-33.0); Mean Corpuscular Volume 87.5 fL (80.0-98.0); Mean Platelet Volume 9.4 fL (9.4-12.4); Monocytes Absolute Auto 0.6 X10*3/uL (0.1-1.2); Neutrophils Absolute Auto 4.3 x10*3/uL (2.0-8.3); Neutrophils Percent Auto 56.8 % (45-73); Platelet Count 398 X10*3/uL (160-400); Red Blood Count 5.36 X10*6/uL (4.60-5.80); White Blood Count 7.6 X10*3/uL (4.8-10.8)
[2025-02-08 10:50] LABS: Alanine Aminotransferase 31 U/L (0-40); Albumin Level 4.4 g/dL (3.5-5.0); Alkaline Phosphatase 60 U/L (39-117); Anion Gap 9 (12-20); Aspartate Amino Transferase 25 U/L (5-37); Bilirubin Total 2.2 mg/dL (0.0-1.0); Blood Urea Nitrogen 9 mg/dL (9-16); Calcium 9.5 mg/dL (8.4-10.2); Carbon Dioxide 28 mmol/L (22-29); Chloride 108 mmol/L (96-108); Cholesterol 142 mg/dL (<200); Estimated Glomerular Filt Rate > 60; Glucose Fasting 88 mg/dL (60-99); HDL Cholesterol 38 mg/dL (>40); LDL Cholesterol Calculated 79 mg/dL (<100); Potassium 3.7 mmol/L (3.3-5.1); Sodium 141 mmol/L (135-145); Total Protein 7.6 g/dL (6.5-8.0); Triglycerides 128 mg/dL (<150)
[2025-02-08 11:01] LABS: Appearance Urine Turbid; Color Urine Dark Yellow; Glucose Urine UA Negative (Negative); Leukocyte Esterase Urine Negative (Negative); Nitrite Urine Negative (Negative); PH 5.5 (5.0-9.0); Specific Gravity - Urine 1.025 (1.005-1.025); UMIC TRIGGER UACC YES; Urine Blood Trace (Negative); Urine Ketones Negative (Negative); Urine Protein Negative (Neg-Trace)
[2025-02-08 11:05] LABS: Bacteria Urine None Seen (None Seen); Squamous Epithelial Cell Urine 0-2 /HPF (0-2); WBC Urine 0-5 /HPF (0-5)
[2025-02-08 11:06] LABS: TSH reflex Free T4 1.72 uIU/mL (0.32-4.0)
== END 2025-02-08 07:15 | disposition home or self-care (01) ==
LOC: HO.HMGCLDS 07:14
PROVIDERS: PCP Nurse Practitioner Family; Visit Provider Nurse Practitioner Family
DX: Z00.00 Encounter for general adult medical examination without abnormal findings (principal); Z13.6 Encounter for screening for cardiovascular disorders
CPT/HCPCS: 36415; 80053; 80061; 81001; 81003; 84443; 85025

== ENCOUNTER 2025-02-16 13:41 | Outpatient (AMB) | payer OTHER, SELFPAY ==
[2025-02-16 13:43] VITALS: BP 118/70; PULSE 88; O2SAT 95; BMI 34.2
--- NOTE | 2025-02-16 13:43 | A.OFFPC_ITS ---
Vital Signs 02/16/25 13:43 Height 5 ft 8 in Weight 225 lb BMI 34.2 BP 118/70 Blood Pressure Location Lt brachial Position Sitting Pulse 88 Pulse Source Pulse Oximeter Pulse Oximetry (%) 95 Oxygen Delivery Method Room Air Intake Visit Reasons: 4 month follow up Intake Note: pt is here for 4 month follow up Line Dancer Required: No Accompanied by: Self / Same As Patient Allergies No Known Allergies Allergy (Verified 02/16/25 13:43) Medication List - Last Reconciled 02/16/25 by JARAD Albarran sertraline 25 mg PO DAILY 30 days Tobacco use date assessed: 02/16/25 Dental Screening Dental Screen Date: 02/16/25 Did you have a dental visit in the last 12 months?: Yes Did you have a dental problem in the last 6 months where you did not have access to dental care?: No Was dental information given to patient?: Patient has dentist HPI 4 month follow up HPI Details Chief Complaint The patient presents with increased anxiety and depression. History of Present Illness The patient is a 29-year-old male presenting with anxiety and depressive symptoms. Recently, he has experienced an escalation in these symptoms, particularly noting an increase in anxiety. Although he feels he partially manages his depression, the anxiety is reportedly worsening without a clear precipitating factor. Despite the increase in symptoms, the patient affirms he does not experience suicidal or homicidal ideations. He is eager to consult a therapist to address his mental health concerns more effectively. Additionally, recent lab work indicated an elevated bilirubin level without corresponding symptomatic manifestations, such as abdominal discomfort or altered bowel habits. Social History - None discussed Health Maintenance - None discussed Review of Systems - Psychiatric: Reports increased anxiety and depression. Denies any suicidal or homicidal ideations. -denies any abd pain, blood in stool , c onstipation, diarrhea Physical Exam General: Cooperative, healthy appearing, comfortable, no acute distress and well developed Orientation: Patient oriented x3 Limitations: No limitations Head: Normal to inspection Ears: Hearing grossly normal bilaterally Nose: Normal external nose present Face and sinus: Normal facial exam Eyes: Appearance normal, both eyes and all related structures Neck: Normal visual inspection and Yes full ROM Respiratory: Normal respiratory effort and able to speak in complete sentences. Clear to auscultation bilaterally Cardiovascular: Regular rate and rhythm. Normal S1 and S2 GI: Normal to inspection. Soft to palpation and nontender Skin: No rashes or lesions noted Neuro: Patient oriented x3 Extremities: Normal to inspection Results - Labs: Elevated bilirubin level at 2.2. Plan I will prescribe sertraline at a low dose of 25 mg nightly to address the patient's anxiety and depression symptoms. The patient's need for therapy will be supported by involving the behavioral health department. I will order further lab work and an abdominal ultrasound to investigate the elevated bilirubin level comprehensively. Follow-up visits will be arranged to monitor medication effectiveness and any adverse effects. Discussion Notes After discussing the patient's anxiety and depression, I outlined the management options, including starting sertraline and referring him to the behavioral health department to arrange therapy sessions. The benefits, potential side effects, and gradual adjustments of sertraline were reviewed, and the patient agreed to the outlined plan. We discussed further investigations for the elevated bilirubin level, including additional lab tests and an abdominal ultrasound, and the need for follow-up appointments to monitor progress and side effects. Patient Instructions - Begin taking sertraline 25 mg at night . - Expect contact from the [facility] to arrange therapy. - Attend follow-up appointments to monit or medication effectiveness and side effects. - Watch for any new or worsening symptom s and report them promptly. - Await further labs/imaging regarding bilirubin level. [facility] Medical History No pertinent past medical history Surgical History No pertinent past surgical history Family History Father Throat cancer Substance use disorder Mother Hypertension Stroke Brother Substance use disorder Social History Housing: House Alcohol intake: never Patient Tobacco Use Status: Never used Tobacco e-Cigarette/Vaping Use: Never Used service: No Current occupational status: employed Cognitive needs: No Hearing needs: No Vision needs: No Questionnaire PHQ-9 Over the last 2 weeks, how often have you been bothered by any of the following problems? 1. Little interest or pleasure in doing things: several days 2. Feeling down, depressed, or hopeless: more than half the days 3. Trouble falling or staying asleep, or sleeping too much: several days 4. Feeling tired or having little energy: more than half the days 5. Poor appetite or overeating: more than half the days 6. Feeling bad about yourself - or that you are a failure or have let yourself or your family down: more than half the days 7. Trouble concentrating on things, such as reading the newspaper or watching television: not at all 8. Moving or speaking so slowly that other people could have noticed. Or the opposite - being so fidgety or restless that you have been moving around a lot more than usual: several days 9. Thoughts that you would be better off or of hurting yourself in some way: several days Total score: 12 Depression Screening Interpretation: Positive (requesting therapist, denies any si or hi, starting sertraline) Depression Screening Done: Yes 56333 - PHQ-9 Billing: Yes Source: Developed by Drs. Deven Watkins, Diane Garcia, Matthew Figueroa and colleagues, with an educational omar from [employer]. Thrive Questionnaire Date Thrive assessed: 02/16/25 I am a: Patient What is your living situation today?: I have a steady place to live Within the past 12 months, did the food you bought not last and you didn't have the money to get more?: Never true Within the past 12 months, did you worry whether your food would run out before you got money to buy more?: Never true Do you have trouble paying for medicines?: No Do you have trouble getting transportation to medical appointments?: No Do you have trouble paying your heating and electricity bill?: No Do you have trouble taking care of your child, family member or friend?: No Do you have trouble with day-to-day activities such as bathing, preparing meals, shopping, managing finances, etc.?: No Are you currently unemployed and looking for a job?: No Are you interested in more education?: Yes Please select the resources that you would like help with: None Currently or been in a relationship where the following occur: No concerns reported THRIVE Score: 0 AUDIT C Alcohol Use Questionnaire (AUDIT-C) 1. How often do you have a drink containing alcohol?: Monthly or less 2. How many drinks containing alcohol do you have on a typical day when you are drinking?: 1 or 2 3. How often do you have six or more drinks on one occasion?: Never Total Score: 1 Score Reviewed/Action Taken: Yes JONH-7 AMB Questionnaire JONH-7 Date JONH - 7 assessed: 02/16/25 Feeling nervous, anxious, or on edge: 2 = More than half the days Not being able to stop or control worryin = More than half the days Worrying too much about different things: 2 = More than half the days Trouble relaxin = More than half the days Being so restless that it is hard to sit still: 2 = More than half the days Becoming easily annoyed or irritable: 2 = More than half the days Feeling afraid as if something awful might happen: 1 = Several days Total JONH-7 score (0-4 normal; 5-9 mild; 10-14 moderate; 15-21 severe): 13 Source: Developed by Drs. Deven Watkins, Diane Garcia, Matthew Figueroa and colleagues, with an educational omar from [employer]. JONH-7 Assessment Billing JONH-7 Assessment Tool: JONH-7 Assessment 17397 (denies any si or hi, requesting therapist, starting sertraline) Physical exam (Primary Care) Vital Signs: Last Vital Signs Pulse 88 02/16/25 13:43 BP 118/70 02/16/25 13:43 Pulse Ox 95 02/16/25 13:43 Oxygen Delivery Method Room Air 02/16/25 13:43 BMI result Body Mass Index 34.2 Tobacco/Smoking Status: Tobacco use Status Tobacco use date assessed 02/16/25 02/16/25 13:44 Patient Tobacco Use Status Never used Tobacco 02/16/25 13:44 e-Cigarette/Vaping Use Never Used 02/16/25 13:44 PHQ-9: PHQ-9 Score PHQ-9: Total score 12 02/16/25 13:44 Depression Screening Interpretation: Positive (requesting therapist, denies any si or hi, starting sertraline) Thrive Assessment: Date of Thrive Assessment Date Thrive assessed 02/16/25 02/16/25 13:44 Currently or been in a relationship where the following occur: No concerns reported Coding Level of Care Code Est Pt Level 3 (78666) Diagnoses Anxiety and depression F41.9; F32.A Elevated bilirubin R17 Additional Codes PHQ-9 - 15253 - PHQ-9 Billing: Yes ([id number]) JONH-7 Assessment Billing - JONH-7 Assessment Tool: JONH-7 Assessment 21007 ([id number]) Assessment & Plan Assessment & Plan (1) Anxiety and depression: Code(s): F41.9 - Anxiety disorder, unspecified; F32.A - Depression, unspecified Category: Medical (2) Elevated bilirubin: Code(s): R17 - Unspecified jaundice Category: Medical Plan . Orders: Orders Reticulocyte Count Today R17 - Unspecified jaundice Bilirubin Direct Today R17 - Unspecified jaundice Bilirubin Total Today R17 - Unspecified jaundice Haptoglobin Today R17 - Unspecified jaundice US abdomen complete Today R17 - Unspecified jaundice Lactate Dehydrogenase Today R17 - Unspecified jaundice Comprehensive Met. Panel Today R17 - Unspecified jaundice Complete Blood Count Auto Diff Today R17 - Unspecified jaundice Medications: New sertraline 25 mg PO DAILY 30 days 30 tabs 3RF
--- OUTSIDE RECORDS SUMMARY | 2025-02-16 16:17 | XMS_ITS | Clinical Summary ---
Author Organization [facility] Address [address] [place] [address] Phone Care Team Providers Care Studio Sales Associate Name Role Phone Enriqueta Pham MD Primary Care Prov ider Social History Tobacco Use Types Packs/Day Years Used Date Smoking Tobacco: Never Assessed Sex and Gender Information Value Date Recorded Sex Assigned at Not on file Legal Sex Male 12:17 PM EST Gender Identity Not on file Sexual Orientation Not on file Plan of Treatment Health Maintenance Due Date Last Done Comments Hepatitis A Vaccines (2 of 2 - [...] age to complete this topic Care Teams Studio Sales Associate Relationship Specialty Start Date End Date Enriqueta Pham MD [address] [place] [address] PCP - General 01/20/18
== END 2025-02-16 14:28 | disposition home or self-care (01) ==
LOC: HO.HMCC 13:42
PROVIDERS: Visit Provider Nurse Practitioner Family
DX: F41.9 Anxiety disorder, unspecified (principal); F32.A Depression, unspecified; R17 Unspecified jaundice

== ENCOUNTER → 2025-02-16 13:41 | Outpatient (BNVA) | payer OTHER, SELFPAY | PROVIDERS: Visit Provider Nurse Practitioner Family | DX: F41.9 Anxiety disorder, unspecified (principal); F32.A Depression, unspecified; R17 Unspecified jaundice | CPT/HCPCS: 96127 ==

== ENCOUNTER 2025-03-09 08:52 | Outpatient (REF) | payer OTHER, SELFPAY ==
--- NOTE | ~2025-03-09 | US_ITS ---
EXAMINATION: US ABDOMEN HISTORY: R17 - Unspecified jaundice TECHNIQUE: Real-time grayscale ultrasound imaging of the abdomen was performed and images were reviewed. COMPARISON: There are no prior studies for comparison. FINDINGS: Liver: The right lobe of the liver measures 15.8 cm in size. The left lobe of the liver measures 8.8 cm in size. The liver demonstrates increased echotexture, consistent with steatosis. No focal mass or intrahepatic biliary ductal dilatation is identified. There is normal hepatopedal flow in the portal vein. Gallbladder and biliary tree: There is a 4 mm calculus in the gallbladder. There is no wall thickening or pericholecystic fluid. There is no sonographic Vera sign. The common bile duct is normal in caliber measuring 5 mm. Kidneys: The right kidney measures 12.4 cm in length. The left kidney measures 12.0 cm in length. There is a 3 mm nonobstructing calculus at the lower pole of the left kidney. The kidneys are unremarkable, without evidence of masses or hydronephrosis. Pancreas: The pancreatic head, neck, and body are unremarkable. The pancreatic tail is obscured by bowel gas. Spleen: The spleen is enlarged, measuring 13.0 cm in length. Abdominal aorta and inferior vena cava: The visualized portions of the abdominal aorta and inferior vena cava are normal in caliber. There is no free fluid in the abdomen. US/US abdomen complete IMPRESSION: 1. Hepatic steatosis. 2. Cholelithiasis without evidence of acute cholecystitis. 3. Splenomegaly. 4. 3 mm nonobstructing calculus at the lower pole of the left kidney. Electronically signed by: Deven Vitale MD 03/09/2025 09:32 AM EDT
--- OUTSIDE RECORDS SUMMARY | 2025-03-09 09:20 | XMS_ITS | Clinical Summary ---
Author Organization [facility] Address [address] [place] [address] Phone Care Team Providers Care Manager Psychology Name Role Phone Enriqueta Pham MD Primary [...] age to complete this topic Care Teams Manager Psychology Relationship Specialty Start Date End Date Enriqueta Pham MD [address] [place] [address] PCP - General 01/20/18
== END 2025-03-09 08:53 | disposition home or self-care (01) ==
LOC: HO.HMGCX 08:52
PROVIDERS: PCP Nurse Practitioner Family; Visit Provider Nurse Practitioner Family
DX: R17 Unspecified jaundice (principal)
CPT/HCPCS: 76700

== ENCOUNTER → 2025-03-09 08:54 | Outpatient (BNV) | payer OTHER, SELFPAY | PROVIDERS: PCP Nurse Practitioner Family; Visit Provider Radiology Diagnostic Radiology | DX: K76.0 Fatty (change of) liver, not elsewhere classified (principal); R16.1 Splenomegaly, not elsewhere classified; N20.0 Calculus of kidney; K80.20 Calculus of gallbladder without cholecystitis without obstruction | CPT/HCPCS: 76700 ==

== ENCOUNTER 2025-03-30 06:56 | Outpatient (AMB) | payer OTHER, SELFPAY ==
--- OUTSIDE RECORDS SUMMARY | 2025-03-30 06:59 | XMS_ITS | Clinical Summary ---
Author Organization [facility] Address [address] [place] [address] Phone Care Team Providers Care Yard Manager Name Role Phone Enriqueta Pham MD Primary [...] age to complete this topic Care Teams Yard Manager Relationship Specialty Start Date End Date Enriqueta Pham MD [address] [place] [address] PCP - General 01/20/18
--- NOTE | 2025-03-30 07:34 | A.OFFPC_ITS ---
Intake Visit Reasons: 6 week follow up Allergies No Known Allergies Allergy (Verified 03/30/25 07:35) Medication List - Last Reconciled 03/30/25 by JARAD Albarran sertraline 25 mg PO DAILY 30 days Tobacco use date assessed: 02/16/25 Dental Screening Dental Screen Date: 02/16/25 HPI 6 week follow up HPI Details History of Present Illness The patient is a 29-year-old male presenting for a follow-up of his Major Depressive Disorder and Generalized Anxiety Disorder. He commenced sertraline 25 mg approximately six weeks ago, reporting substantial improvement in his symptoms and overall mood. He did engage with a therapist but found the experience unsatisfactory, choosing not to pursue further therapy currently. He expressly denies having suicidal or homicidal ideation. Concurrently, the patient has presented with hyperbilirubinemia, with a level of 2.2, and an abdominal ultrasound has identified fatty liver disease with hepatosplenomegaly. The patient is aware of the importance of improving his diet. He reports no symptoms typically associated with liver dysfunction, such as abdominal pain, fever, chills, or fatigue. Additional laboratory work has been ordered to explore these findings further. Review of Systems - Psychiatric: Reports significant impro vement with sertraline, denies suicidal or homicidal ideation. - Gastrointestinal: Denies abdominal huy n, fever, chills, fatigue. Plan Continuation of sertraline 25 mg daily for Major Depressive Disorder and Generalized Anxiety Disorder is planned, given the current positive response. Further investigation into liver function related to hyperbilirubinemia and fatty liver disease is underway with ordered laboratory tests. Dietary modifications are recommended to manage fatty liver disease. The patient will follow up to monitor and reassess the treatment regimen as needed. Discussion Notes I discussed with the patient the continuation of the sertraline given the substantial improvement in his mood and anxiety symptoms. The potential benefits of psycho-therapy were acknowledged; however, the patient prefers not to seek therapy at this time. Regarding the liver-related findings, I explained the significance of the elevated bilirubin and fatty liver disease and the need for further laboratory evaluations. The patient was informed of the importance of lifestyle changes in managing fatty liver disease and agreed to monitor his dietary habits. Follow-up visits will address progress and adjustments to the treatment plan as necessary. Patient Instructions - Continue taking sertraline 25 mg daily . - Maintain or improve dietary habits to manage liver health. - Attend follow-up appointments for furt her evaluations. - Monitor for any changes in mood or new symptoms and report them. - No need for therapy unless desired in the future. [facility] Medical History Splenomegaly Fatty liver No pertinent past medical history Surgical History No pertinent past surgical history Family History Father Throat cancer Substance use disorder Mother Hypertension Stroke Brother Substance use disorder Social History Housing: House Alcohol intake: never Patient Tobacco Use Status: Never used Tobacco e-Cigarette/Vaping Use: Never Used service: No Current occupational status: employed Cognitive needs: No Hearing needs: No Vision needs: No Questionnaire Thrive Questionnaire Date Thrive assessed: 02/16/25 I am a: Patient What is your living situation today?: I have a steady place to live Within the past 12 months, did the food you bought not last and you didn't have the money to get more?: Never true Within the past 12 months, did you worry whether your food would run out before you got money to buy more?: Never true Do you have trouble paying for medicines?: No Do you have trouble getting transportation to medical appointments?: No Do you have trouble paying your heating and electricity bill?: No Do you have trouble taking care of your child, family member or friend?: No Do you have trouble with day-to-day activities such as bathing, preparing meals, shopping, managing finances, etc.?: No Are you currently unemployed and looking for a job?: No Are you interested in more education?: Yes Please select the resources that you would like help with: None Currently or been in a relationship where the following occur: No concerns reported THRIVE Score: 0 JONH-7 AMB Questionnaire JONH-7 Date JONH - 7 assessed: 02/16/25 Source: Developed by Drs. Deven Watkins, Diane Garcia, Matthew Figueroa and colleagues, with an educational omar from [employer]. Physical exam (Primary Care) Tobacco/Smoking Status: Tobacco use Status Tobacco use date assessed 02/16/25 02/16/25 13:44 Patient Tobacco Use Status Never used Tobacco 02/16/25 13:44 e-Cigarette/Vaping Use Never Used 02/16/25 13:44 Thrive Assessment: Date of Thrive Assessment Date Thrive assessed 02/16/25 02/16/25 13:44 Currently or been in a relationship where the following occur: No concerns reported Telehealth Telehealth Telehealth Platform: [employer] Location of provider rendering services: practice address Location of patient: address on file Patient Identification confirmed using: Name, : Yes Telehealth method: video Patient verbally consented to treatment: Yes Patient verbally consented to billing insurance company: Yes Patient informed of any privacy concerns related to visit: Yes Minutes spent on Phone/Video with Pt.: 15 Coding Level of Care Code Tele Est Pt Level 3 (55713) Diagnoses Elevated bilirubin R17 Anxiety and depression F41.9; F32.A Assessment & Plan Assessment & Plan (1) Elevated bilirubin: Code(s): R17 - Unspecified jaundice Category: Medical (2) Anxiety and depression: Code(s): F41.9 - Anxiety disorder, unspecified; F32.A - Depression, unspecified Category: Medical Plan .
== END 2025-03-30 07:48 | disposition home or self-care (01) ==
LOC: HO.HMCC 06:56
PROVIDERS: Visit Provider Nurse Practitioner Family
DX: R17 Unspecified jaundice (principal); F41.9 Anxiety disorder, unspecified; F32.A Depression, unspecified

== ENCOUNTER → 2025-03-30 06:56 | Outpatient (BNVA) | payer OTHER, SELFPAY | PROVIDERS: Visit Provider Nurse Practitioner Family ==

== ENCOUNTER 2025-05-02 15:42 | Outpatient (AMB) | payer OTHER, SELFPAY ==
--- NOTE | 2025-05-02 15:43 | A.OFFVIS_ITS ---
Intake Visit Reasons: 1y/US Intake Note: Patient presents today for follow up on: urethral stone and Ultrasound Results Imagin03/09/25 Urology Meds: none Allergies to Antibiotic: No Known Allergies Blood Thinner: None Sock Drier Required: No Accompanied by: Self / Same As Patient Allergies No Known Allergies Allergy (Verified 05/02/25 16:26) Medication List - Last Reconciled 05/02/25 by RITCHIE Rogers sertraline 25 mg PO DAILY 30 days HPI Comments Details: Eugene is a very pleasant 29-year-old male patient. He is being followed up on today via video telehealth for his nephrolithiasis. In discussion with the patient today reports to be doing and feeling well. He does report feeling he had an episode of potential passage of kidney stone approximately 3 months ago however he took OTC Advil and felt flank pain he had been experiencing has since subsided. Recent renal imaging results were reviewed with the patient today. 03/24 3 mm nonobstructing calculus at the lower pole of the left kidney. He otherwise denies any bothersome urinary issues or concerns. When asked he reports to not be drinking enough water daily. We did discussed at length the importance of adequate hydration relation to nephrolithiasis as well as overall health and well-being. When asked he denies urinary urgency, urinary frequency, incontinence, nocturia, hematuria, dysuria, foul smelling urine, changes to urinary stream, flank pain, fever, and or chills. He is happy with his current voiding parameters. We discussed further metabolic workup to include 24 hour urine and labs. All questions were answered. He otherwise offers no other issues or concerns at this time. [facility] Medical History Splenomegaly Fatty liver No pertinent past medical history Surgical History No pertinent past surgical history Family History Father Throat cancer Substance use disorder Mother Hypertension Stroke Brother Substance use disorder Social History Housing: House Alcohol intake: never Patient Tobacco Use Status: Never used Tobacco e-Cigarette/Vaping Use: Never Used service: No Current occupational status: employed Cognitive needs: No Hearing needs: No Vision needs: No Review of Systems Const All systems reviewed & are unremarkable except as noted in HPI and below Physical Exam Const General: cooperative, healthy appearing, comfortable, no acute distress, well developed, alert and awake Orientation/consciousness: patient oriented x3 Resp Effort & Inspection: normal respiratory effort and able to speak in complete sentences Neuro General: patient oriented x3 Psych Appearance: grossly normal and well kempt Speech and movement: Clear speech present Affect: normal affect Thought process: Normal thought process present Insight: Fair insight present (Psych) Judgement: Fair judgement present (Psych) Telehealth Telehealth Telehealth Platform: eegoes Location of provider rendering services: practice address Location of patient: address on file Patient Identification confirmed using: Name, : Yes Telehealth method: video Patient verbally consented to treatment: Yes Patient verbally consented to billing insurance company: Yes Patient informed of any privacy concerns related to visit: Yes Minutes spent on Phone/Video with Pt.: 15 Results Reviewed Results Reviewed: Date of Service: 03/09/25 Procedure(s): US abdomen complete FINDINGS: Liver: The right lobe of the liver measures 15.8 cm in size. The left lobe of the liver measures 8.8 cm in size. The liver demonstrates increased echotexture, consistent with steatosis. No focal mass or intrahepatic biliary ductal dilatation is identified. There is normal hepatopedal flow in the portal vein. Gallbladder and biliary tree: There is a 4 mm calculus in the gallbladder. There is no wall thickening or pericholecystic fluid. There is no sonographic Vera sign. The common bile duct is normal in caliber measuring 5 mm. Kidneys: The right kidney measures 12.4 cm in length. The left kidney measures 12.0 cm in length. There is a 3 mm nonobstructing calculus at the lower pole of the left kidney. The kidneys are unremarkable, without evidence of masses or hydronephrosis. Pancreas: The pancreatic head, neck, and body are unremarkable. The pancreatic tail is obscured by bowel gas. Spleen: The spleen is enlarged, measuring 13.0 cm in length. Abdominal aorta and inferior vena cava: The visualized portions of the abdominal aorta and inferior vena cava are normal in caliber. There is no free fluid in the abdomen. IMPRESSION: 1. Hepatic steatosis. 2. Cholelithiasis without evidence of acute cholecystitis. 3. Splenomegaly. 4. 3 mm nonobstructing calculus at the lower pole of the left kidney. Assessment & Plan Assessment & Plan (1) Nephrolithiasis: Code(s): N20.0 - Calculus of kidney Category: Medical Plan Recent renal imaging results reviewed with the patient today; as noted above. He currently denies any bothersome urinary issues or concerns. He reports be happy with current voiding parameters. Will continue with surveillance monitoring. We discussed the importance of adequate hydration relation to nephrolithiasis as well as overall health and well-being. We discussed adding 1 oz of lemon juice to water daily. Will obtain renal ultrasound in 1 year. Follow-up in 1 year with imaging to be completed prior; or sooner with any issues, concerns, and or questions. Patient Instructions: The patient had an opportunity to ask questions regarding the treatment plan. All questions were answered. Physical exam, labs, and imaging were discussed and reviewed in detail. As well as risks, benefits, and discussion of treatment c hoices. No major barriers to understanding were identified. The patient expressed understanding and agreement with the above treatment plan. The patient was made aware they should contact our office by phone for worsening of their current condition, the appearance of new symptoms, or with any questions or concerns. Compliance is encouraged with any medications and follow up testing that is ordered. It is a privilege to be allowed the opportunity to participate in? your urological care.? Again, if you have any questions or concerns If you have any questions or concerns please do not hesitate to contact me. The office is [phone]. This note is constructed using voice recognition software. While every effort has been made to ensure accuracy aircraft ordnance systems mechanic errors may have been included. Yours sincerely, RITCHIE Rogers Coding Level of Care Code Tele Est Pt Level 3 (21824) Diagnoses Nephrolithiasis N20.0
--- OUTSIDE RECORDS SUMMARY | 2025-05-02 17:01 | XMS_ITS | Clinical Summary ---
Author Organization [facility] Address [address] [place] [address] Phone Care Team Providers Care Machine Stuffer Automatic Name Role Phone Enriqueta Pham MD Primary [...] age to complete this topic Care Teams Machine Stuffer Automatic Relationship Specialty Start Date End Date Enriqueta Pham MD [address] [place] [address] PCP - General 01/20/18
== END 2025-05-02 16:31 | disposition home or self-care (01) ==
LOC: HO.HUSH 15:42
PROVIDERS: PCP Nurse Practitioner Family; Visit Provider Nurse Practitioner Family
DX: N20.0 Calculus of kidney (principal)
CPT/HCPCS: 99213

== ENCOUNTER → 2025-05-02 15:42 | Outpatient (BNVA) | payer OTHER, SELFPAY | PROVIDERS: PCP Nurse Practitioner Family; Visit Provider Nurse Practitioner Family ==

== ENCOUNTER 2025-10-25 14:55 | Outpatient (AMB) | payer OTHER, SELFPAY ==
[2025-10-25 15:02] VITALS: BP 112/62; PULSE 96; O2SAT 97
--- NOTE | 2025-10-25 15:02 | MHC.PC.OV ---
Vital Signs 10/25/25 15:02 Weight 229 lb BP 112/62 Blood Pressure Location Rt brachial Pulse 96 Pulse Oximetry (%) 97 Oxygen Delivery Method Room Air Intake Visit Reasons: Annual PE Salvage Winder Required: No Accompanied by: Self / Same As Patient Allergies No Known Allergies Allergy (Verified 10/25/25 15:23) Medication List - Last Reconciled 10/25/25 by ANDREA AlbarranP- sertraline 25 mg PO DAILY 30 days Tobacco use date assessed: 10/25/25 Dental Screening Dental Screen Date: 10/25/25 Did you have a dental visit in the last 12 months?: No Did you have a dental problem in the last 6 months where you did not have access to dental care?: No Was dental information given to patient?: Patient declined HPI Annual PE HPI Details History of Present Illness The patient is a 29 year old individual presenting for a physical examination. The patient reports doing quite well. The patient denies chest pain, shortness of breath, abdominal pain, hematochezia, constipation, and diarrhea. There is also a denial of suicidal or homicidal ideation. Health Maintenance - A physical examination was performed. - Fasting labs will be obtained in the near future. Social History Review of Systems - Constitutional: Reports doing well. - Cardiovascular: Denies chest pain. - Respiratory: Denies dyspnea. - Gastrointestinal: Denies abdominal pain, blood in stool, constipation, and diarrhea. - Psychiatric: Denies suicidal and homicidal ideation. Physical Exam General: Cooperative, healthy appearing, comfortable, no acute distress, well developed, and obese Orientation: Patient oriented x3 Limitations: No limitations Head: Normal to inspection Ears: Hearing grossly normal bilaterally Nose: Normal external nose present Face and sinus: Normal facial exam Eyes: Appearance normal, both eyes and all related structures Neck: Normal visual inspection and Yes full ROM Respiratory: Normal respiratory effort and able to speak in complete sentences. Clear to auscultation bilaterally Cardiovascular: Regular rate and rhythm. Normal S1 and S2 GI: Normal to inspection. Soft to palpation and nontender : testicles without masses/lesions and no hernias appreciated Skin: No rashes or lesions noted Neuro: Patient oriented x3 Extremities: Normal to inspection Results Plan 1. Obesity Fasting labs will be ordered in the near future. 2. Encounter For General Adult Medical Examination Without Abnormal Findings The patient reports doing well, and the physical examination was benign. Fasting labs will be obtained in the near future as part of health maintenance. Discussion Notes I discussed with the patient that the physical exam was benign and that the patient reports feeling well. I informed the patient about the plan to order fasting labs in the near future. Patient Instructions - Your physical exam today was normal. - We will be ordering some lab tests for you. - You will need to fast, meaning do not eat or drink anything except water, before your lab appointment. [facility] Medical History Splenomegaly Fatty liver No pertinent past medical history Surgical History No pertinent past surgical history Family History Father Throat cancer Substance use disorder Mother Hypertension Stroke Brother Substance use disorder Social History Housing: House Alcohol intake: never Patient Tobacco Use Status: Never used Tobacco e-Cigarette/Vaping Use: Never Used service: No Current occupational status: employed Cognitive needs: No Hearing needs: No Vision needs: No Questionnaire Thrive Questionnaire Date Thrive assessed: 02/16/25 I am a: Patient What is your living situation today?: I have a steady place to live Within the past 12 months, did the food you bought not last and you didn't have the money to get more?: Never true Within the past 12 months, did you worry whether your food would run out before you got money to buy more?: Never true Do you have trouble paying for medicines?: No Do you have trouble getting transportation to medical appointments?: No Do you have trouble paying your heating and electricity bill?: No Do you have trouble taking care of your child, family member or friend?: No Do you have trouble with day-to-day activities such as bathing, preparing meals, shopping, managing finances, etc.?: No Are you currently unemployed and looking for a job?: No Are you interested in more education?: Yes Please select the resources that you would like help with: None Currently or been in a relationship where the following occur: No concerns reported THRIVE Score: 0 JONH-7 AMB Questionnaire JONH-7 Date JONH - 7 assessed: 02/16/25 Source: Developed by Drs. Deven Watkins, Diane Garcia, Matthew Figueroa and colleagues, with an educational omar from [employer]. Physical exam (Primary Care) Vital Signs: Last Vital Signs Pulse 96 10/25/25 15:02 BP 112/62 10/25/25 15:02 Pulse Ox 97 10/25/25 15:02 Oxygen Delivery Method Room Air 10/25/25 15:02 Tobacco/Smoking Status: Tobacco use Status Tobacco use date assessed 10/25/25 10/25/25 15:04 Patient Tobacco Use Status Never used Tobacco 10/25/25 15:04 e-Cigarette/Vaping Use Never Used 10/25/25 15:04 Thrive Assessment: Date of Thrive Assessment Date Thrive assessed 02/16/25 10/25/25 15:04 Currently or been in a relationship where the following occur: No concerns reported Coding Level of Care Code Est Pt Prev Care 18-39y(86029) Diagnoses Physical exam Z00.00 Assessment & Plan Assessment & Plan (1) Physical exam: Code(s): Z00.00 - Encounter for general adult medical examination without abnormal findings Category: Medical Plan . Orders: Orders UA CC w/rflx Micro + Cult Today Z00.00 - Encounter for general adult medical examination without abnormal findings Lipid Panel Today Z00.00 - Encounter for general adult medical examination without abnormal findings Complete Blood Count Auto Diff Today Z00.00 - Encounter for general adult medical examination without abnormal findings Comprehensive [place]. Panel Fast Today Z00.00 - Encounter for general adult medical examination without abnormal findings TSH reflex Free T4 Today Z00.00 - Encounter for general adult medical examination without abnormal findings
--- OUTSIDE RECORDS SUMMARY | 2025-10-25 17:33 | XMS_ITS | Clinical Summary ---
Author Organization [facility] Address [address] [place] [address] Phone Care Team Providers Care Trust Administrative Assistant Name Role Phone Enriqueta Pham MD Primary [...] 2 - 2-dose series) 05/22/2014 11/21/2013, 11/21/2013 HPV Vaccines (1 - 3-dose SCDM series) 2021 DTaP,Tdap,and Td Vaccines (14 - Td or Tdap) 11/21/2023 11/21/2013, 11/21/2013, 11/21/2013, Additional history exists Influenza Vaccines (#1) 2025 11/21/20 13, 11/21/2013, 11/16/2009 COVID-19 Vaccine ( season) 2025 Meningococcal Vaccine Completed 03/24/2012 , 03/24/2012, 01/21/2008, [...] Varicella Vaccines Completed 11/21/2013, 0 01/21/2008, 07/08/2001 Men B Vaccine Aged Out No longer elig ible based on patient's age to complete this topic Care Teams Trust Administrative Assistant Relationship Specialty Start Date End Date Enriqueta Pham MD [address] [place] [address] PCP - General 01/20/18
== END 2025-10-25 15:32 | disposition home or self-care (01) ==
LOC: HO.HMCC 14:56
PROVIDERS: Visit Provider Nurse Practitioner Family
DX: Z00.00 Encounter for general adult medical examination without abnormal findings (principal)